=== PATIENT | male | born 1975 | race African-American/Black ===

== ENCOUNTER 2018-07-22 11:35 | Emergency (ER) | payer OTHER ==
[2018-07-22] MEDS: KETOROLAC 30 MG INJ IM (12:42)
== END 2018-07-22 14:19 | disposition home or self-care (01) ==
LOC: FTE 11:35
DX: S13.9XXA Sprain of joints and ligaments of unspecified parts of neck, initial encounter (principal); S80.01XA Contusion of right knee, initial encounter; V49.50XA Passenger injured in collision with unspecified motor vehicles in traffic accident, initial encounter
CPT/HCPCS: 72040; 73564; 96372; 99284-25